=== PATIENT | male | born 1985 | race Caucasian/White ===

== ENCOUNTER 2016-12-24 20:05 | Emergency (ER) | payer OTHER ==
[2016-12-24 20:13] VITALS: BP 128/74; PULSE 86; TEMP 98.8; BMI 24.3
--- NOTE | 2016-12-24 21:23 | PDOC ---
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 Pt states "felt like I hit my funny bone". no swelling or deformity FROM of the elbow. 12/24/16 21:24 Past History - Past Medical History Allergies/Adverse Reactions: Allergies Allergy/AdvReac Type Severity Reaction Status Date / Time venom-honey bee Allergy Intermediate Swelling Verified 12/24/16 20:11 [bee venom (honey bee)] Home Medications: Ambulatory Orders NK [No Known Home Medication] 12/24/16 GI Disorders: Yes (GERD) - Psycho/Social/Smoking Cessation Hx Anxiety: No Suicidal Ideation: No Smoking Status: No Smoking History: Never smoked Have you smoked in the past 12 months: No Number of Cigarettes Smoked Daily: 0 Hx Alcohol Use: No Drug/Substance Use Hx: No Review of Systems - Review of Systems Able to Perform ROS?: Yes Is the patient limited Swedish proficient: No Constitutional: No: Symptoms Reported HEENTM: No: Symptoms Reported Respiratory: No: Symptoms reported Cardiac (ROS): No: Symptoms Reported ABD/GI: No: Symptoms Reported : No: Symptoms Reported Musculoskeletal: Yes: Symptoms Reported, See HPI *Physical Exam - Vital Signs Last Vital Signs Temp Pulse Resp BP Pulse Ox 98.8 F 86 18 128/74 98 12/24/16 20:12 12/24/16 20:12 12/24/16 20:12 12/24/16 20:12 12/24/16 20:12 - Physical Exam General Appearance: Yes: Nourished, Appropriately Dressed HEENT: positive: EOMI, QUINTON Neck: positive: Supple Respiratory/Chest: positive: Lungs Clear, Normal Breath Sounds Cardiovascular: positive: Regular Rhythm, Regular Rate Gastrointestinal/Abdominal: positive: Normal Bowel Sounds, Soft Musculoskeletal: positive: Normal Inspection Extremity: positive: Normal Capillary Refill, Normal Inspection, Normal Range of Motion, Tender (no bony tenderness, FROM nv intact right elbow) Integumentary: positive: Normal Color, Dry, Warm Neurologic: positive: Fully Oriented, Alert, Normal Mood/Affect, Normal Response , Motor Strength 12/28 ED Treatment Course - RADIOLOGY Radiology Studies Ordered: Category Date Time Status ELBOW-RIGHT [RAD] Stat Radiology 12/24/16 20:29 Taken Medical Decision Making - Medical Decision Making 12/24/16 21:26 cc: strain to right elbow FROM nv intact no deformity or swelling no bony tenderness motrin given for pain xray done preliminary read is negative 12/25/16 20:15 *DC/Admit/Observation/Transfer Diagnosis at time of Disposition: Strain of elbow Qualifiers: Encounter type: initial encounter Laterality: right Qualified Code(s): S56.911A - Strain of unspecified muscles, fascia and tendons at forearm level, right arm, initial encounter - Discharge Dispostion Disposition: HOME Condition at time of disposition: Good - Referrals Referrals: Skyler Gallagher MD [Staff Physician] - - Patient Instructions Additional Instructions: follow with or call tomorrow to make appointment if the pain is worsening or getting worse apply ice every 2hrs to the area of pain for 15-20 minutes while awake for the next 2 days take motrin (advil,ibuprofen) for pain as needed
[2016-12-24] MEDS ORDERED: IBUPROFEN 600 MG TABLET (FP) PO ONE ×2 (21:25→21:26)
== END 2016-12-24 21:45 | disposition home or self-care (01) ==
LOC: JERFT 20:05
DX: S56.911A Strain of unspecified muscles, fascia and tendons at forearm level, right arm, initial encounter (principal); X50.1XXA Overexertion from prolonged static or awkward postures, initial encounter; Y35.891A Legal intervention involving other specified means, law enforcement official injured, initial encounter; Y93.89 Activity, other specified; Y92.89 Other specified places as the place of occurrence of the external cause; Y99.0 Civilian activity done for income or pay
CPT/HCPCS: 73070-TC-RT; 99281-25

== ENCOUNTER 2017-07-22 22:53 | Emergency (ER) | payer OTHER ==
[2017-07-22 23:02] VITALS: BP 124/66; PULSE 75; TEMP 98.8; BMI 25.0
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
== END 2017-07-22 23:49 | disposition home or self-care (01) ==
LOC: JERFT 22:53 → JER 22:53 → JERFT 23:49
DX: Z77.21 Contact with and (suspected) exposure to potentially hazardous body fluids (principal); Y35.811A Legal intervention involving manhandling, law enforcement official injured, initial encounter; Y93.89 Activity, other specified; Y92.89 Other specified places as the place of occurrence of the external cause; Y99.0 Civilian activity done for income or pay
CPT/HCPCS: 99281-25

== ENCOUNTER 2019-02-04 22:49 | Emergency (ER) | payer OTHER | END 2019-02-04 23:38 | disposition home or self-care (01) | LOC: JER 22:49 ==